=== PATIENT | female | born 1940 | race Caucasian/White ===

== ENCOUNTER → 2019-02-26 | Outpatient (CLI) | payer OTHER, MEDICARE ==
[~2019-02-26] MED LIST: AMI10 PO; AMI25 PO; DIOVAN; EST625 PO; EZE10 PO; FERR240T23 PO; HCTZ25 PO; LEV25 PO; LEVO50 PO; LOSA50TA73 PO; OMEP-153 PO; PAN40 PO; PRAV40TA77 PO; ROS10 PO; VALS1TAB61 PO
--- NOTE | 2019-03-14 09:54 | RADIOLOGY IMAGING REPORT ---
FACILITY: [facility] [place] PATIENT NAME: KRISTIN SANTACRUZ : [id number] MR: [id number] V: [id number] EXAM DATE: [id number] ORDERING PHYSICIAN: ALEKS ELIZABETH TECHNOLOGIST: Soni Knight PROCEDURE: BILATERAL DIGITAL SCREENING MAMMOGRAM WITH CAD ASSISTED INTERPRETATION & 3D TOMOSYNTHESIS REASON FOR STUDY: Screening. FAMILY HISTORY OF BREAST CANCER: None. BREAST PROCEDURES/TREATMENTS: None. COMPARISON: From 09/04/2008. VIEWS OBTAINED: 2D & 3D full field CC & MLO. BREAST DENSITY: Scattered areas of fibroglandular densities.. MAMMOGRAM FINDINGS: There is no dominant mass, suspicious cluster of microcalcifications or persistent areas of architectural distortion. IMPRESSION: BIRADS 1: Negative. DIAGNOSTIC CATEGORY 1--NEGATIVE. RECOMMENDATIONS: ROUTINE MAMMOGRAM AND CLINICAL EVALUATION. Dictated by: Osmin Kaplan M.D. on 03/14/2019 at 8:34 Transcribed by: BHARATH on 03/14/2019 at 8:48 Approved by: Osmin Kaplan M.D. on 03/14/2019 at 9:51 [facility]
== END ==
LOC: MAMO 00:45
PROVIDERS: ATTEND Nurse Practitioner Family
DX: Z12.31 Encounter for screening mammogram for malignant neoplasm of breast (principal)
CPT/HCPCS: 77063; 77067